=== PATIENT | male | born 1990 | race Caucasian/White ===

== ENCOUNTER 2021-04-29 11:57 | Emergency (ER) | payer OTHER, SELFPAY ==
--- NOTE | ~2021-04-29 | XR_ITS ---
EXAMINATION: XR CHEST CLINICAL INFORMATION: Chest pain COMPARISON: Chest radiograph 12/27/2014 (report) TECHNIQUE: 2 views of the chest were obtained. FINDINGS: The lungs are clear. There is no pneumothorax, airspace consolidation, pleural reaction, or effusion. The cardiac and hilar and mediastinal contours and visualized bony structures are unremarkable. XR/XR chest 2V IMPRESSION: Normal study.
[2021-04-29 12:05] VITALS: BP 144/71; PULSE 109; RESP 18; TEMP 36.7; O2SAT 97; BMI 35.4
--- NOTE | 2021-04-29 12:22 | ECG_ITS ---
Test Reason : CHEST PAIN Blood Pressure : / mmHG Vent. Rate : 099 BPM Atrial Rate : 099 BPM P-R Int : 146 ms QRS Dur : 090 ms QT Int : 350 ms P-R-T Axes : 047 039 024 degrees QTc Int : 449 ms Normal sinus rhythm Nonspecific T wave abnormality Abnormal ECG No previous ECGs available Referred By: Maxwell Duran Electronically Signed By:Hemal Nicholson
--- NOTE | 2021-04-29 12:35 | ED.CHESTPAIN ---
HPI - Chest Pain General Chief Complaint: Chest Pain Stated Complaint: chest pain, dizziness after taking bp med Time Seen by Provider: 04/29/21 12:22 Source: patient Mode of arrival: ambulatory Limitations: no limitations History of Present Illness HPI narrative: 30-year-old male presents emergency department complaining of feeling weak and dizzy. Patient states he misses doses blood pressure medications was at work and he started to feel like he was having some palpitations and chest pain patient decided to take his blood pressure medications frequent back to work and when he returned he was weak and dizzy. Patient states that he still feels weak but he knows has dizziness he no longer has palpitations or chest pain. Patient denies any cough fever he states he does suffer from anxiety. Patient has no family history of heart disease he has no history of coronary disease MD complaint: chest pain Onset (ago): minute(s) Timing of current episode: episodic Prior episodes: Yes Onset: during rest Pain location: substernal Pain radiation: none Severity: mild Quality: tightness Relieving factors: nothing Exacerbating factors: nothing Treatment prior to arrival: none Related Data Allergies Allergy/AdvReac Type Severity Reaction Status Date / Time shrimp Allergy Anaphylaxis Verified 04/29/21 12:04 Review of Systems Review of Systems: Review of systems: General: Patient denies any fever chills recent illness or falls Musculoskeletal: Denies back pain or body aches or other injuries HEENT: denies headache, runny nose, ear pain Respiratory: denies shortness of breath, cough Cardiovascular: no chest pain or palpitations : denies dysuria, frequency Abdomen: no nausea vomiting denies abdominal pain Extremities: no swelling, no pain Skin: no diaphoresis Yes all other systems are reviewed and are negative [facility] Past Medical History Attestation statement: The following information was validated with the patient. Social History Social History Alcohol intake: current Alcohol intake frequency: a few times a month Alcohol type: beer Patient Tobacco Use Status: Never used Tobacco Use of substances other than those prescribed or required for medical reasons: No Advance Directives: No Advance Directives Information Provided: No Physical Exam Vital Signs: Vital Signs: Last Vital Signs Temp 98.0 F 04/29/21 12:05 Pulse 88 04/29/21 14:15 Resp 18 04/29/21 12:05 BP 133/68 04/29/21 14:15 Pulse Ox 98 04/29/21 14:15 Body Mass Index 35.4 General: Well-appearing well-nourished in no signs of distress HEENT: Normocephalic atraumatic Neck: No signs of JVD, no masses no tenderness or lymphadenopathy Cardiovascular: Regular rate and rhythm Respiratory: Clear to auscultation bilaterally Abdomen: Soft nontender no masses rectal exam performed guiac negative quality control lab tech confirmed. Extremities: Normal pedal pulses no signs of edema Skin: Dry warm no rashes Back: No tenderness full ROM MDM - Chest Pain MDM Narrative Medical decision making narrative: 30 year old male with low risk chest pain his heart score He is 0. After finishing his HPI and physical patient then complained of right flank pain. I could not reproduce the pain he denies assocication with food but since he also has chest pain I will check a lipase lft's and a UA. If there is no blood in the urine I don't think any Ct imaging is needed as he is non tender and has had the pain for weeks. 1356 Patient with relief of pain troponin is normal XR is normal. Patient has not given us a urine sample. His bilirubin is elevated but previously was much higher and the AST is again equally elevated. I think patient needs to follow up with his doctor. \ 1419 UA is negative XR and labs are normal. Bedside US performed and I had a good view of the gallbladder negative sonographic limon sign no gallbladder wall thickening and nor stones. I will send home patient has pain to right flank for weeks and can try tylenol and follow up with pCP. With no blood in the urine I feel there is no need for CT at this time. Differential Diagnosis Differential diagnosis: Likely atypical chest pain Differential diagnosis: Anxiety, biliary colic, chest pain Lab Data Result diagrams: 04/29/21 12:58 04/29/21 12:58 Labs: Lab Results 04/29/21 04/29/21 04/29/21 Range/Units 12:58 12:58 12:58 WBC 8.9 (4.8-10.8) X10*3/uL RBC 5.13 (4.60-5.80) X10*6/uL Hgb 13.9 L (14.0-18.0) g/dl Hct 41.3 L (42-52) % MCV 80.5 (80-98) fL MCH 27.1 (27.0-33.0) pg MCHC 33.7 (31.0-36.0) g/dl RDW 12.8 (11.0-16.0) % Plt Count 231 (160-400) X10*3/uL MPV 11.0 (9.4-12.4) fL Immature Gran % (Auto) 0.4 (0.0-0.4) % Neut % (Auto) 74.0 H (45-73) % Lymph % (Auto) 17.5 L (20-40) % [place] % (Auto) 7.5 (2-11) % Eos % (Auto) 0.3 (0-4) % Baso % (Auto) 0.3 (0-2) % Lymph # (Auto) 1.6 (1.2-4.9) X10*3/uL [place] # (Auto) 0.7 (0.1-1.2) X10*3/uL Eos # (Auto) 0.0 (0.0-0.4) X10*3/uL Baso # (Auto) 0.0 (0.0-0.2) X10*3/uL Abs Immat Gran (auto) 0.04 H (0.00-0.03) X10*3/uL Absolute Neuts (auto) 6.6 (2.0-8.3) X10*3/uL Absolute Nucleated RBC 0.000 (0.0-0.012) X10*3/uL Nucleated RBC % (auto) 0.0 (0.0-0.2) /100WBC Sodium 139 (135-145) mmol/L Potassium 3.2 L (3.3-5.1) mmol/L Chloride 100 (96-108) mmol/L Carbon Dioxide 31 H (22-29) mmol/L Anion Gap 11 L (12-20) BUN 12 (9-16) mg/dL Creatinine 0.84 (0.5-1.4) mg/dL Estim Creat Clear Calc 159.1 Estimated GFR > 60 Random Glucose 152 H (60-115) mg/dL Calcium 8.8 (8.4-10.2) mg/dL Total Bilirubin 1.4 H (0.0-1.0) mg/dL Direct Bilirubin 0.5 (0.0-0.5) mg/dL AST 22 (5-37) U/L ALT 45 H (0-40) U/L Alkaline Phosphatase 108 (39-117) U/L Troponin I High Sens 4.2 (<3.5-35.0) ng/L Total Protein 7.0 (6.5-8.0) g/dL Albumin 4.0 (3.5-5.0) g/dL Lipase 15 (8-78) U/L Urine Color Urine Appearance Urine pH (5.0-8.0) Ur Specific [place] (1.005-1.025) Urine Protein (NEG-TRACE) MG/DL Urine Glucose (UA) (NEG) MG/DL Urine Ketones (NEG) MG/DL Urine Blood (NEG) Urine Nitrite (NEG) Ur Leukocyte Esterase (NEG) 04/29/21 Range/Units 14:07 WBC (4.8-10.8) X10*3/uL RBC (4.60-5.80) X10*6/uL Hgb (14.0-18.0) g/dl Hct (42-52) % MCV (80-98) fL MCH (27.0-33.0) pg MCHC (31.0-36.0) g/dl RDW (11.0-16.0) % Plt Count (160-400) X10*3/uL MPV (9.4-12.4) fL Immature Gran % (Auto) (0.0-0.4) % Neut % (Auto) (45-73) % Lymph % (Auto) (20-40) % [place] % (Auto) (2-11) % Eos % (Auto) (0-4) % Baso % (Auto) (0-2) % Lymph # (Auto) (1.2-4.9) X10*3/uL [place] # (Auto) (0.1-1.2) X10*3/uL Eos # (Auto) (0.0-0.4) X10*3/uL Baso # (Auto) (0.0-0.2) X10*3/uL Abs Immat Gran (auto) (0.00-0.03) X10*3/uL Absolute Neuts (auto) (2.0-8.3) X10*3/uL Absolute Nucleated RBC (0.0-0.012) X10*3/uL Nucleated RBC % (auto) (0.0-0.2) /100WBC Sodium (135-145) mmol/L Potassium (3.3-5.1) mmol/L Chloride (96-108) mmol/L Carbon Dioxide (22-29) mmol/L Anion Gap (12-20) BUN (9-16) mg/dL Creatinine (0.5-1.4) mg/dL Estim Creat Clear Calc Estimated GFR Random Glucose (60-115) mg/dL Calcium (8.4-10.2) mg/dL Total Bilirubin (0.0-1.0) mg/dL Direct Bilirubin (0.0-0.5) mg/dL AST (5-37) U/L ALT (0-40) U/L Alkaline Phosphatase (39-117) U/L Troponin I High Sens (<3.5-35.0) ng/L Total Protein (6.5-8.0) g/dL Albumin (3.5-5.0) g/dL Lipase (8-78) U/L Urine Color STRAW Urine Appearance CLEAR Urine pH 6.5 (5.0-8.0) Ur Specific [place] 1.010 (1.005-1.025) Urine Protein NEG (NEG-TRACE) MG/DL Urine Glucose (UA) NEG (NEG) MG/DL Urine Ketones NEG (NEG) MG/DL Urine Blood NEG (NEG) Urine Nitrite NEG (NEG) Ur Leukocyte Esterase NEG (NEG) ECG Data ECG #1: Attestation: I personally reviewed and interpreted this ECG as follows: ECG interpretation date: 04/29/21 ECG interpretation time: 12:50 Prior ECG tracings: available for review Interpretation: Rate 99 normal sinus rhythm slightly tachycardic normal intervals no signs of ischemia. Scores Heart Score History: -0- slightly suspicious ECG: -0- normal Age: -0- < or = 45 Risk factory: -0- no risk factors known Troponin: -0- < or = normal limit Score: 0 Risk: 1.7% Discharge Plan Discharge Clinical Impression: Weakness Chest pain Qualifiers: Chest pain type: unspecified Qualified Code(s): R07.9 - Chest pain, unspecified Patient Disposition: Home, Self-Care Instructions: Chest Pain (ED) Additional Instructions: Your Xr and labs are all normal other than mild elevation in your liver function. Please call to follow up with your doctor and abstain from alcohol use.
--- NOTE | 2021-04-29 12:42 | PC.NURSE ---
Original EKG not done due to machine being used for other patients
[2021-04-29 13:04] LABS: MANUAL DIFF FLAG NO
[2021-04-29] MEDS: 0.9 % Sodium Chloride 500 ML 999 ML IV (13:04)
[2021-04-29 13:05] LABS: Basophils Percent Auto 0.3 % (0-2); Eosinophils Percent Auto 0.3 % (0-4); Hematocrit 41.3 % (42-52); Hemoglobin 13.9 g/dl (14.0-18.0); Imm Gran Abs Auto 0.04 X10*3/uL (0.00-0.03); Imm Gran Pct Auto 0.4 % (0.0-0.4); Lymphocytes Absolute Auto 1.6 X10*3/uL (1.2-4.9); Lymphocytes Percent Auto 17.5 % (20-40); Mean Corpuscular HGB Conc 33.7 g/dl (31.0-36.0); Mean Corpuscular Hemoglobin 27.1 pg (27.0-33.0); Mean Corpuscular Volume 80.5 fL (80-98); Monocytes Absolute Auto 0.7 X10*3/uL (0.1-1.2); Monocytes Percent Auto 7.5 % (2-11); Neutrophils Absolute Auto 6.6 X10*3/uL (2.0-8.3); Platelet Count 231 X10*3/uL (160-400); Red Blood Count 5.13 X10*6/uL (4.60-5.80); Red Cell Distribution Width 12.8 % (11.0-16.0); White Blood Count 8.9 X10*3/uL (4.8-10.8)
[2021-04-29] MEDS: Aspirin 81 MG TAB.CHEW 324 MG PO (13:05)
[2021-04-29 13:33] LABS: Alanine Aminotransferase 45 U/L (0-40); Alkaline Phosphatase 108 U/L (39-117); Anion Gap 11 (12-20); Aspartate Amino Transferase 22 U/L (5-37); Bilirubin Direct 0.5 mg/dL (0.0-0.5); Bilirubin Total 1.4 mg/dL (0.0-1.0); Blood Urea Nitrogen 12 mg/dL (9-16); Calcium 8.8 mg/dL (8.4-10.2); Carbon Dioxide 31 mmol/L (22-29); Chloride 100 mmol/L (96-108); Creatinine Clr Calc Pharmacy 159.1; Estimated Glomerular Filt Rate > 60; Glucose Random 152 mg/dL (60-115); Lipase 15 U/L (8-78); Potassium 3.2 mmol/L (3.3-5.1); Sodium 139 mmol/L (135-145)
[2021-04-29 13:41] LABS: Troponin-I High Sensitivity 4.2 ng/L (<3.5-35.0)
[2021-04-29 14:13] LABS: Glucose Urine UA NEG (NEG); Leukocyte Esterase Urine NEG (NEG); Nitrite Urine NEG (NEG); PH 6.5 (5.0-8.0); Urine Blood NEG (NEG); Urine Ketones NEG (NEG); Urine Protein NEG (NEG-TRACE)
[2021-04-29 14:14] LABS: Appearance Urine CLEAR; Color Urine STRAW
[2021-04-29 14:15] VITALS: BP 133/68; PULSE 88; O2SAT 98
== END 2021-04-29 14:47 | disposition home or self-care (01) ==
PROVIDERS: Emergency Provider Student in an Organized Health Care Education/Training Program; PCP Internal Medicine
DX: R07.9 Chest pain, unspecified (principal); R10.9 Unspecified abdominal pain
CPT/HCPCS: 36415; 71046; 80048; 80076; 81003; 83690; 84484; 85025; 93005; 96360; 99284

== ENCOUNTER 2021-05-21 16:04 | Emergency (ER) | payer SELFPAY ==
--- NOTE | ~2021-05-21 | CT_ITS ---
EXAMINATION: CT ABDOMEN AND PELVIS WITHOUT CONTRAST CLINICAL INFORMATION: Right upper quadrant and flank pain. Elevated bilirubin. COMPARISON: Ultrasound abdomen 08/15/2018 TECHNIQUE: Multidetector volumetric imaging was performed from the superior aspect of the liver through the pubic symphysis. Sagittal and coronal reformatted images were obtained on the technologist's workstation. This CT examination was performed using dose optimization techniques as appropriate, variously including the following: *Automated exposure control *Adjustment of mA and/or kV according to patient size (this includes techniques or standardized protocols for targeted exams where dose is matched to indication/reason for exam; i.e. extremities or head) *Use of iterative reconstruction technique DLP: 771 mGy-cm FINDINGS: LUNG BASES: The visualized lung bases are unremarkable. LIVER, GALLBLADDER, AND BILIARY TREE: The liver is normal in size, shape, and attenuation. No focal hepatic lesion or biliary ductal dilatation is present. The gallbladder is unremarkable with no evidence of radiopaque gallstones, gallbladder wall thickening, or obvious pericholecystic inflammatory changes. PANCREAS: Unremarkable. SPLEEN: Unremarkable. ADRENAL GLANDS: Unremarkable. KIDNEYS AND URETERS: The kidneys are normal in size, shape, and attenuation. There is a 3 mm hypodensity in the lower pole right kidney most likely a small radiopaque calculi. It is best visualized on coronal image 54/6 and axial image 44/2 No caliectasis seen. No additional radiopaque calculi seen. No perinephric stranding. BLADDER: Unremarkable. GASTROINTESTINAL TRACT: The small and large bowel are unremarkable. The appendix is unremarkable. ABDOMINAL WALL: No significant hernia is appreciated. . LYMPH NODES: Normal. VASCULAR: Unremarkable. PELVIC VISCERA: Unremarkable. OSSEOUS STRUCTURES: Unremarkable. CT/CT abdomen pelvis wo con IMPRESSION: Suspect nonobstructive 3 mm radiopaque calculi lower pole calyx right kidney. No caliectasis or hydronephrosis seen. Normal appendix
[2021-05-21 16:33] VITALS: BP 129/75; PULSE 95; RESP 20; TEMP 36.1; O2SAT 97; BMI 35.7
[2021-05-21 17:28] LABS: MANUAL DIFF FLAG NO
[2021-05-21 17:31] LABS: Basophils Percent Auto 0.3 % (0-2); Eosinophils Percent Auto 0.4 % (0-4); Hematocrit 45.1 % (42-52); Hemoglobin 15.2 g/dl (14.0-18.0); Imm Gran Abs Auto 0.04 X10*3/uL (0.00-0.03); Imm Gran Pct Auto 0.4 % (0.0-0.4); Lymphocytes Percent Auto 20.4 % (20-40); Mean Corpuscular HGB Conc 33.7 g/dl (31.0-36.0); Mean Corpuscular Hemoglobin 27.5 pg (27.0-33.0); Mean Corpuscular Volume 81.6 fL (80-98); Mean Platelet Volume 11.3 fL (9.4-12.4); Monocytes Absolute Auto 0.8 X10*3/uL (0.1-1.2); Monocytes Percent Auto 8.4 % (2-11); Neutrophils Absolute Auto 6.9 X10*3/uL (2.0-8.3); Neutrophils Percent Auto 70.1 % (45-73); Platelet Count 257 X10*3/uL (160-400); Red Blood Count 5.53 X10*6/uL (4.60-5.80); Red Cell Distribution Width 13.2 % (11.0-16.0); White Blood Count 9.9 X10*3/uL (4.8-10.8)
[2021-05-21 17:59] LABS: Alanine Aminotransferase 47 U/L (0-40); Albumin Level 4.3 g/dL (3.5-5.0); Alkaline Phosphatase 99 U/L (39-117); Anion Gap 10 (12-20); Aspartate Amino Transferase 22 U/L (5-37); Bilirubin Total 1.6 mg/dL (0.0-1.0); Blood Urea Nitrogen 14 mg/dL (9-16); Calcium 9.7 mg/dL (8.4-10.2); Carbon Dioxide 32 mmol/L (22-29); Chloride 102 mmol/L (96-108); Creatinine Clr Calc Pharmacy 131.6; Estimated Glomerular Filt Rate > 60; Glucose Random 90 mg/dL (60-115); Lipase 17 U/L (8-78); Potassium 3.4 mmol/L (3.3-5.1); Sodium 141 mmol/L (135-145); Total Protein 7.6 g/dL (6.5-8.0)
[2021-05-21 18:13] LABS: Glucose Urine UA NEG (NEG); Leukocyte Esterase Urine NEG (NEG); Nitrite Urine NEG (NEG); Specific Gravity - Urine 1.025 (1.005-1.025); Urine Blood NEG (NEG); Urine Ketones NEG (NEG); Urine Protein NEG (NEG-TRACE)
[2021-05-21 18:16] LABS: Appearance Urine CLEAR; Color Urine YELLOW
--- NOTE | 2021-05-21 18:35 | ED.ABDPAIN ---
HPI - Abdominal Pain General Chief Complaint: Abdominal Pain Stated Complaint: Abdominal pain Time Seen by Provider: 05/21/21 18:35 Source: patient Mode of arrival: ambulatory Limitations: no limitations History of Present Illness HPI narrative: Patient complaining of diffuse abdominal discomfort with diarrhea for 3 days and also right upper quadrant pain for last 2 weeks was seen here on 04/29 bedside ultrasound was negative for gallstones but patient is still complaining of pain now no nausea no vomiting had loose bowels which are getting better now no fever no chills no urinary complaints no history of kidney stone Related Data Previous Rx's Medication Instructions Recorded dicyclomine 20 mg PO QID PRN #20 tab 05/21/21 Allergies Allergy/AdvReac Type Severity Reaction Status Date / Time shrimp Allergy Anaphylaxis Verified 05/21/21 16:33 Review of Systems Review of Systems Yes all other systems are reviewed and are negative Physical Exam Vital Signs: Vital Signs: Last Vital Signs Temp 99.1 F 05/21/21 19:34 Pulse 90 05/21/21 19:34 Resp 18 05/21/21 19:34 BP 118/63 05/21/21 19:34 Pulse Ox 97 05/21/21 19:34 Body Mass Index 35.7 Appearance: Alert. Oriented X3. No acute distress. Eyes: PERRLA, No Nystagmus ENT: Pharynx normal. Oral Mucosa moist Neck: Normal inspection. Neck supple. CVS: Normal heart rate and rhythm. Pulses normal. Respiratory: No respiratory distress. Equal air entry bilateral, no wheezing/rales/rhonchi Abdomen: Soft and mild tenderness right upper quadrant Bowel sounds are present, no mass palpable, no CVA tenderness Skin: Skin warm and dry. Normal skin color. Normal skin turgor. Extremities: No lower extremity edema. No calf tenderness Neuro: Oriented X 3. No motor deficit. MDM - Abdominal Pain MDM Narrative Medical decision making narrative: Patient with nonspecific right upper quadrant pain CT scan negative for any gallstones or CBD stone showed nonobstructive 3 mm right kidney stone which is not the cause of the pain. Will discharge patient on dicyclomine Lab Data Attestation: I reviewed the patient's lab results. Result diagrams: 05/21/21 17:24 05/21/21 17:24 Labs: Lab Results 07/16/21 07/16/21 07/16/21 Range/Units 17:24 17:24 17:57 WBC 9.9 (4.8-10.8) X10*3/uL RBC 5.53 (4.60-5.80) X10*6/uL Hgb 15.2 (14.0-18.0) g/dl Hct 45.1 (42-52) % MCV 81.6 (80-98) fL MCH 27.5 (27.0-33.0) pg MCHC 33.7 (31.0-36.0) g/dl RDW 13.2 (11.0-16.0) % Plt Count 257 (160-400) X10*3/uL MPV 11.3 (9.4-12.4) fL Immature Gran % (Auto) 0.4 (0.0-0.4) % Neut % (Auto) 70.1 (45-73) % Lymph % (Auto) 20.4 (20-40) % [place] % (Auto) 8.4 (2-11) % Eos % (Auto) 0.4 (0-4) % Baso % (Auto) 0.3 (0-2) % Lymph # (Auto) 2.0 (1.2-4.9) X10*3/uL [place] # (Auto) 0.8 (0.1-1.2) X10*3/uL Eos # (Auto) 0.0 (0.0-0.4) X10*3/uL Baso # (Auto) 0.0 (0.0-0.2) X10*3/uL Abs Immat Gran (auto) 0.04 H (0.00-0.03) X10*3/uL Absolute Neuts (auto) 6.9 (2.0-8.3) X10*3/uL Absolute Nucleated RBC 0.000 (0.0-0.012) X10*3/uL Nucleated RBC % (auto) 0.0 (0.0-0.2) /100WBC Sodium 141 (135-145) mmol/L Potassium 3.4 (3.3-5.1) mmol/L Chloride 102 (96-108) mmol/L Carbon Dioxide 32 H (22-29) mmol/L Anion Gap 10 L (12-20) BUN 14 (9-16) mg/dL Creatinine 1.02 (0.5-1.4) mg/dL Estim Creat Clear Calc 131.6 Estimated GFR > 60 Random Glucose 90 D (60-115) mg/dL Calcium 9.7 D (8.4-10.2) mg/dL Total Bilirubin 1.6 H (0.0-1.0) mg/dL AST 22 (5-37) U/L ALT 47 H (0-40) U/L Alkaline Phosphatase 99 (39-117) U/L Total Protein 7.6 (6.5-8.0) g/dL Albumin 4.3 (3.5-5.0) g/dL Lipase 17 (8-78) U/L Urine Color YELLOW Urine Appearance CLEAR Urine pH 6.0 (5.0-8.0) Ur Specific [place] 1.025 (1.005-1.025) Urine Protein NEG (NEG-TRACE) MG/DL Urine Glucose (UA) NEG (NEG) MG/DL Urine Ketones NEG (NEG) MG/DL Urine Blood NEG (NEG) Urine Nitrite NEG (NEG) Ur Leukocyte Esterase NEG (NEG) Discharge Plan Discharge Clinical Impression: Abdominal pain Qualifiers: Abdominal location: right upper quadrant Qualified Code(s): R10.11 - Right upper quadrant pain Patient Disposition: Home, Self-Care Instructions: Abdominal Pain (ED) Additional Instructions: Your blood workup and CT scan is negative for any acute pathology for abdominal pain Take medication as prescribed for abdominal cramping Prescriptions: New dicyclomine 20 mg tablet 20 mg PO QID PRN (Reason: abdominal pain) Qty: 20 RF: 0 PMFSH Past Medical History Medical History Hypertension Social History Social History Alcohol intake: current Alcohol intake frequency: a few times a month Alcohol type: beer Patient Tobacco Use Status: Never used Tobacco Advance Directives: No Advance Directives Information Provided: Yes
[2021-05-21 19:34] VITALS: BP 118/63; PULSE 90; RESP 18; TEMP 37.3; O2SAT 97
[2021-05-21] MEDS: Dicyclomine HCl 10 MG CAPSULE 20 MG PO (20:10)
== END 2021-05-21 20:13 | disposition home or self-care (01) ==
PROVIDERS: Emergency Provider Internal Medicine; PCP Internal Medicine
DX: R10.11 Right upper quadrant pain (principal); I10 Essential (primary) hypertension
CPT/HCPCS: 36415; 74176; 80053; 81003; 83690; 85025; 99283; 99284

== ENCOUNTER 2021-06-24 08:32 | Outpatient (REF) | payer OTHER, SELFPAY ==
[2021-06-24 09:42] LABS: MANUAL DIFF FLAG NO
[2021-06-24 09:50] LABS: Basophils Percent Auto 0.1 % (0-2); Hematocrit 45.3 % (42-52); Imm Gran Abs Auto 0.05 X10*3/uL (0.00-0.03); Imm Gran Pct Auto 0.5 % (0.0-0.4); Lymphocytes Absolute Auto 1.5 X10*3/uL (1.2-4.9); Lymphocytes Percent Auto 13.3 % (20-40); Mean Corpuscular HGB Conc 33.1 g/dl (31.0-36.0); Mean Corpuscular Hemoglobin 26.9 pg (27.0-33.0); Mean Corpuscular Volume 81.2 fL (80-98); Mean Platelet Volume 12.2 fL (9.4-12.4); Monocytes Absolute Auto 0.8 X10*3/uL (0.1-1.2); Monocytes Percent Auto 7.5 % (2-11); Neutrophils Absolute Auto 8.6 X10*3/uL (2.0-8.3); Neutrophils Percent Auto 78.6 % (45-73); Platelet Count 273 X10*3/uL (160-400); Red Blood Count 5.58 X10*6/uL (4.60-5.80); Red Cell Distribution Width 12.8 % (11.0-16.0)
[2021-06-24 10:08] LABS: Alanine Aminotransferase 33 U/L (0-40); Albumin Level 4.4 g/dL (3.5-5.0); Alkaline Phosphatase 99 U/L (39-117); Anion Gap 12 (12-20); Aspartate Amino Transferase 17 U/L (5-37); Bilirubin Total 1.7 mg/dL (0.0-1.0); Blood Urea Nitrogen 14 mg/dL (9-16); Calcium 9.4 mg/dL (8.4-10.2); Carbon Dioxide 30 mmol/L (22-29); Chloride 100 mmol/L (96-108); Cholesterol 180 mg/dL; Estimated Glomerular Filt Rate > 60; Glucose Random 96 mg/dL (60-115); HDL Cholesterol 32 mg/dL; LDL Cholesterol Calculated 125 mg/dl; Potassium 3.3 mmol/L (3.3-5.1); Sodium 139 mmol/L (135-145); Total Protein 7.7 g/dL (6.5-8.0); Triglycerides 117 mg/dL
== END 2021-06-24 08:33 | disposition home or self-care (01) ==
LOC: HO.LAB 08:32
PROVIDERS: PCP Internal Medicine; Visit Provider Internal Medicine
DX: E78.2 Mixed hyperlipidemia (principal); I10 Essential (primary) hypertension; K59.09 Other constipation; R10.13 Epigastric pain; R14.0 Abdominal distension (gaseous)
CPT/HCPCS: 36415; 80053; 80061; 85025

== ENCOUNTER 2021-07-01 13:39 | Outpatient (REF) | payer OTHER, SELFPAY | END 2021-07-01 13:40 | disposition home or self-care (01) | LOC: HO.LNP 13:39 | PROVIDERS: Visit Provider Internal Medicine | DX: R10.13 Epigastric pain (principal); R14.0 Abdominal distension (gaseous); E78.2 Mixed hyperlipidemia; I10 Essential (primary) hypertension; K59.09 Other constipation | CPT/HCPCS: 87338 ==